=== PATIENT | female | born 2000 | race Hispanic/Latino ===

== ENCOUNTER 2021-07-11 20:59 | Emergency (ER) | payer BC ==
[~2021-07-11] VITALS: Ht 160 cm; Wt 87.6 kg
--- OUTSIDE RECORDS SUMMARY | 2021-07-11 22:12 | XMS ---
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 E.D. VISIT COUNT (12 MO.) [address] [place] [address] TOTAL 2 NOTE: Visits indicate total known visits. ED/UCC VISIT TRACKING (12 MO.) 07/11/2021 21:00 [facility] TYPE: Emergency COMPLAINT: - ABD PAIN, NAUSEA, VOMITING 07/10/2021 19:17 [facility] OR TYPE: Emergency DIAGNOSES: - Hematuria, unspecified - Urinary tract infection, site not specified - NAUSEA,VOMITING INPATIENT VISIT TRACKING (12 MO.) No inpatient visits to display in this time frame [email or web address]
[2021-07-11] MEDS ORDERED: PROTONIX40 MG PO (23:17)
[2021-07-11] MEDS ORDERED: ONDANSETRON ODT8 MG PO (23:17)
== END 2021-07-11 23:31 | disposition home or self-care (01) ==
LOC: ED 20:59
DX: R10.11 Right upper quadrant pain (principal); J45.909 Unspecified asthma, uncomplicated
CPT/HCPCS: 36415; 76705; 80053; 81001; 83690; 84703; 85025; 96374; 99284-25; A9270; J2405; J7030